=== PATIENT | male | born 1955 | race Caucasian/White ===

== ENCOUNTER 2016-05-02 19:09 | Emergency (ER) | payer BC ==
[~2016-05-02] VITALS: Ht 172.7 cm; Wt 75.0 kg
[2016-05-02 19:10] VITALS: BP 141/75; PULSE 85; RESP 20; TEMP 98.1; O2SAT 93
[2016-05-02] MEDS ORDERED: inhaler (19:26)
[2016-05-02] MEDS ORDERED: SODIUM CHLORIDE 0.9% FLUSH 10 ML FLUSH IVF PRN (19:30)
[2016-05-02] MEDS ORDERED: methylPREDNISolone SOD SUCC 125 MG/2 ML VIAL IVP ONE (19:30)
[2016-05-02 19:32] VITALS: O2SAT 95
[2016-05-02] MEDS: RESP: ALBUTEROL 2.5 MG/IPRATROPIUM 0.5 MG NEB (SCH) INH (19:37)
--- NOTE | 2016-05-02 19:47 | PD ---
HPI Chief Complaint: Respiratory Symptoms Time Seen by Provider: 19:43 Travel History International Travel<30 days: No Contact w/Intl Traveler<30days: No Traveled to known affect area: No History of Present Illness HPI 61-year-old male that presents to the ED for evaluation of shortness of breath, cough and fever. Per patient she's had this for the past 6 days. Per patient he does have a chronic history of COPD and continues to smoke. He denies any chest pain but he does state having a lot of cough causing some abdominal discomfort and then having a headache as well. Per patient she's been sick before but not as bad as this. Per patient she thought she could get over it but he has not. He been taking OTC meds with minimal relief. He denies any recent travel. Does having some fevers chills and sweats as well as body aches. Denies any sick contacts but he does state that he goes to the hospital a lot to see his . He has no allergies to medication. Denies any bowel movement or urinary issues. No history of heart disease. States that he's been trying to use his inhalers but he is not able because the shortness of breath and he feels like he cannot catch his breath. He states that he also has been losing his appetite he doesn't feel like he wants to eat. Denies any inability to eat but just not wanting to eat. PFSH Past Medical History COPD: Yes Respiratory: Yes (COPD) Influenza Vaccination: No Past Surgical History Other Surgery: Yes (hernia repair ) Social History Alcohol Use: No Tobacco Use: Yes (1ppd ) Substance Use: No Allergies-Medications (Allergen,Severity, Reaction): Coded Allergies: No Known Allergies (Unverified , 05/02/16) Reported Meds & Prescriptions Reported Meds & Active Scripts Active Nebulizer 1 Mis Mis 1 Ea .ROUTE DIRECTED Azithromycin 250 Mg Tab 250 Mg PO DIRECTED Take 2 tabs (500 mg) on day 1 then 1 tab daily x 4 days. Prednisone 20 Mg Tab 20 Mg PO BID Albuterol Neb (Albuterol Sulfate) 2.5 Mg/0.5 Ml Neb 2.5 Mg NEB Q6HR NEB Note: The Albuterol Sulfate Inhalation Solution is concentrated and must be diluted. Read complete instructions carefully before using. Proair Hfa 8.5 GM Inh (Albuterol Sulfate) 90 Mcg/Act Aer 2 Puff INH Q4-6H PRN 108 mcg/actuation Reported [inhaler] Review of Systems General / Constitutional: Positive: Fever, Chills, No: Weight Gain, Weight Loss, Other Eyes: No: Diploplia, Blurred Vision, Photophobia, Drainage, Redness, Foreign Body Sensation, Pain, Tearing, Blind Spots, Visual changes, Blindness, Other HENT: Positive: Headaches, Sore Throat, Rhinitis, Congestion, No: Vertigo, Lightheadedness, Rhinorrhea, Nosebleed, Neck Stiffness, Neck Pain, Masses, Gingival Bleeding, Dental Difficulties, Ear Discharge, Earache, Other Cardiovascular: No: Chest Pain or Discomfort, Palpitations, Irregular Rhythm, Tachycardia, Diaphoresis, Syncope, Dyspnea on exertion, Varicosities, Edema, Cyanosis, Varicosities, Phlebitis, Claudication, Other Respiratory: Positive: Cough, Shortness of Breath, Wheezing, No: Sneezing, Orthopnea, Hemoptysis, Stridor, Night Sweats, Pleuritic Pain, Other Gastrointestinal: Positive: Abdominal Pain (from coughing), No: Nausea, Vomiting, Diarrhea, Hematemesis, Hematochezia, Constipation, Changes in Bowel Habits, Indigestion, Dysphagia, Loss of Appetite, Other Genitourinary: No: Urgency, Frequency, Dysuria, Nocturia, Hematuria, Decreased Urinary Output, Oliguria, Hesitancy, Dribbling, Incontinence, Pelvic Pain, Flank Pain, Dyspareunia, Discharge, Dysmenorrhea, Menorrhagia, Metorrhagia, Vaginal Bleeding, Other Musculoskeletal: No: Myalgias, Arthralgias, Limited ROM, Weakness, Cramping, Edema, Pain, Atrophy, Other Skin: No Rash, No Itching, No Dryness, No Lumps, No Hives, No Change in Pigmentation, No Change in nails, No Alopecia, No Lesions, No Breast Lumps, No Breast Tenderness, No Breast Swelling, No Other Neurologic: No: Weakness, Dizziness, Syncope, Focal Abnormalities, Coordination Problem, Tremor, Ataxia, Headache, Change in Mentation, Slurred Speech, Paresthesia, Incontinence, Seizures, Sensory Disturbance, Other Psychiatric: No: Anxiety, Depression, Suicidal Ideations, Disorder of Thought, Mood Disorder, Substance Abuse, Homicidal Ideation, Other Endocrine: No: Heat Intolerance, Cold Intolerance, Polyuria, Polydipsia, Other Hematologic/Lymphatic: No: Easy Bruising, Lymph Node Enlargement, Other Physical Exam Narrative GENERAL: Well-nourished, well-developed patient in no apparent distress. SKIN: Warm and dry. HEAD: Atraumatic. Normocephalic. EYES: Pupils equal and round reactive to light and accommodation. No scleral icterus. No injection or drainage. ENT: No nasal bleeding or discharge. Mucous membranes pink and moist. TMs are clear with no sign of infection or perforation. No mastoid tenderness. Ear canals are intact bilaterally. No lymphadenopathy. Nostril mucosa is red and moist with clear mucus noted. No sinus tenderness to palpation noted. Tonsils are not enlarged or swollen. No ulvua Deviation. Tongue is midline. NECK: Trachea midline. No JVD. No meningeal signs noted CARDIOVASCULAR: Regular rate and rhythm. RESPIRATORY: No accessory muscle use. Rales and wheezing heard in all lung quesada.. Breath sounds equal bilaterally. GASTROINTESTINAL: Abdomen soft, non-tender, nondistended. Hepatic and splenic margins not palpable. MUSCULOSKELETAL: Extremities without clubbing, cyanosis, or edema. No obvious deformities. NEUROLOGICAL: Awake and alert. No obvious cranial nerve deficits. Motor grossly within normal limits. Five out of 5 muscle strength in the arms and legs. Normal speech. PSYCHIATRIC: Appropriate mood and affect; insight and judgment normal. Data Data Last Documented VS Vital Signs Date Time Temp Pulse Resp B/P Pulse Ox O2 Delivery O2 Flow Rate FiO2 05/02/16 19:32 95 Room Air 05/02/16 19:10 98.1 85 20 141/75 Orders Electrocardiogram (05/02/16 19:30) Basic Metabolic Panel (Bmp) (05/02/16 19:30) Complete Blood Count With Diff (05/02/16 19:30) Chest, Single Ap (05/02/16 19:30) Ecg Monitoring (05/02/16 19:30) Iv Access Insert/Monitor (05/02/16 19:30) Oximetry (05/02/16 19:30) Oxygen Administration (05/02/16 19:30) Methylprednisolone So Succ Inj (Solumedr (05/02/16 19:30) Albuterol-Ipratropium Neb (Duoneb Neb) (05/02/16 19:30) Sodium Chloride 0.9% Flush (Ns Flush) (05/02/16 19:30) Influenzae A/B Antigen (05/02/16 19:30) Albuterol Neb (Albuterol Neb) (05/02/16 20:45) Labs Laboratory Tests Test 05/02/16 19:37 White Blood Count 4.8 TH/MM3 Red Blood Count 5.13 MIL/MM3 Hemoglobin 15.2 GM/DL Hematocrit 46.0 % Mean Corpuscular Volume 89.7 FL Mean Corpuscular Hemoglobin 29.6 PG Mean Corpuscular Hemoglobin 33.0 % Concent Red Cell Distribution Width 13.4 % Platelet Count 132 TH/MM3 Mean Platelet Volume 10.3 FL Neutrophils (%) (Auto) 50.7 % Lymphocytes (%) (Auto) 33.1 % Monocytes (%) (Auto) 11.5 % Eosinophils (%) (Auto) 4.0 % Basophils (%) (Auto) 0.7 % Neutrophils # (Auto) 2.4 TH/MM3 Lymphocytes # (Auto) 1.6 TH/MM3 Monocytes # (Auto) 0.6 TH/MM3 Eosinophils # (Auto) 0.2 TH/MM3 Basophils # (Auto) 0.0 TH/MM3 CBC Comment DIFF FINAL Differential Comment Sodium Level 139 MEQ/L Potassium Level 4.6 MEQ/L Chloride Level 104 MEQ/L Carbon Dioxide Level 30.0 MEQ/L Anion Gap 5 MEQ/L Blood Urea Nitrogen 15 MG/DL Creatinine 1.34 MG/DL Estimat Glomerular Filtration 55 ML/MIN Rate Random Glucose 90 MG/DL Calcium Level 8.0 MG/DL MDM Medical Decision Making Medical Screen Exam Complete: Yes Emergency Medical Condition: Yes Medical Record Reviewed: Yes Interpretation(s) CBC & BMP Diagram 05/02/16 19:37 influenza negative CXR negative Differential Diagnosis Bronchitis versus sinusitis versus COPD exacerbation versus pneumonia versus influenza versus respiratory failure versus sepsis Narrative Course 61-year-old male that presents to the ED for evaluation of shortness of breath. Patient was properly examined and was found to have signs and symptoms consistent with appears to be possible COPD exacerbation. Labs and imaging ordered. Medications given. Labs and imaging showed no sign of acute disease. Flu negative. At this time this appears to be related to bronchitis with COPD exacerbation. Patient was rechecked and feels better. Patient was given results. Patient agrees with plan. This time I recommend outpatient treatment. Patient given prescription for albuterol inhaler, nebulizer as well as prescription for prednisone and azithromycin. He was told that he needs to follow up closely with PCP and discontinue smoking. Patient was told that if in 48 hours he does not improve or feels worse he needs to come back to the ED immediately. he agrees and understands. All questions were answered to the best of my ability. He is happy with care. See ED for worsening symptoms. Diagnosis Primary Impression: Bronchitis Additional Impression: COPD (chronic obstructive pulmonary disease) Qualified Code: J44.1 - Chronic obstructive pulmonary disease with acute exacerbation Patient Instructions: General Instructions Additional Instructions: Motrin and Tylenol for pain and fever. You can use [id number] antihistamine as well as well as Mucinex as needed for runny nose and congestion. Cough drops for cough as needed. Drink plenty of fluids. Follow-up with PCP. See ED for worsening symptoms. Med/Other Pt SpecificInfo: Prescription(s) given Scripts Nebulizer 1 Mis Mis #1 EA .ROUTE DIRECTED Ref 0 Prov:Turner Hylton MD 05/02/16 Azithromycin 250 Mg [id number] Mg PO DIRECTED #6 TAB Take 2 tabs (500 mg) on day 1 then 1 tab daily x 4 days. Prov:Turner Hylton MD 05/02/16 Prednisone 20 Mg Tab20 Mg PO BID #10 TAB Prov:Turner Hylton MD 05/02/16 Albuterol Neb 2.5 Mg/0.5 Ml Neb2.5 Mg NEB Q6HR NEB #30 BOX Note: The Albuterol Sulfate Inhalation Solution is concentrated and must be diluted. Read complete instructions carefully before using. Prov:Turner Hylton MD 05/02/16 Albuterol 8.5 GM Inh (Proair Hfa 8.5 GM Inh)90 Mcg/Act Aer2 Puff INH Q4-6H PRN ( SHORTNESS OF BREATH) #1 INHALER 108 mcg/actuation Prov:Turner Hylton MD 05/02/16 Disposition: 01 DISCHARGE HOME Condition: Stable Steven Oreilly May 02, 2016 19:47
[2016-05-02 20:06] LABS: AUTOMATED NEUTROPHIL # 2.4 TH/MM3 (1.8-7.7); BASOPHIL % 0.7 % (0.0-2.0); EOSINOPHIL # 0.2 TH/MM3 (0-0.4); HEMO FLAGS DIFF FINAL; LYMPH % 33.1 % (9.0-44.0); LYMPHOCYTE # 1.6 TH/MM3 (1.0-4.8); MEAN CELL VOLUME 89.7 FL (80.0-100.0); MEAN CORPUSCULAR HEMOGLOBIN 29.6 PG (27.0-34.0); MONO % 11.5 % (0.0-8.0); NEUT % 50.7 % (16.0-70.0); PLATELET COUNT 132 TH/MM3 (150-450); RED BLOOD COUNT 5.13 MIL/MM3 (4.50-5.90); RED CELL DISTRIBUTION WIDTH 13.4 % (11.6-17.2); WHITE BLOOD COUNT 4.8 TH/MM3 (4.0-11.0)
[2016-05-02 20:24] LABS: POTASSIUM 4.6 MEQ/L (3.5-5.1)
--- NOTE | 2016-05-02 20:24 | RADRPT ---
EXAM DATE/TIME: 05/02/2016 19:47 [facility] COMPARISON: No previous studies available for comparison. INDICATIONS : Wheezing and cough for the past few days. Fever also. MEDICAL HISTORY : Chronic obstructive pulmonary disease. SURGICAL HISTORY : None. ENCOUNTER: Initial ACUITY: 3 days PAIN SCORE: 0/10 LOCATION: Bilateral chest FINDINGS: A single view of the chest demonstrates the lungs to be symmetrically aerated without evidence of mas s, infiltrate or effusion. The cardiomediastinal contours are unremarkable. Osseous structures are intact. CONCLUSION: No acute disease. Zeus Rodarte MD on May 02, 2016 at 20:21 Board Certified Radiologist. This report was verified electronically.
[2016-05-02] MEDS ORDERED: ALBUAER3 INH (20:39)
[2016-05-02] MEDS ORDERED: AZIT250T3 PO (20:39)
[2016-05-02] MEDS ORDERED: PRED20 PO (20:39)
[2016-05-02] MEDS ORDERED: ALBU.5I NEB (20:39)
[2016-05-02] MEDS ORDERED: NEBULIZER1 MI1 (20:39)
[2016-05-02] MEDS: RESP: ALBUTEROL 2.5 MG/3 ML NEB (SCH) INH ×2 (21:00→21:01)
--- NOTE | 2016-05-03 14:52 | EKG ---
Date Performed: 05/02/2016 Time Performed: 19:34:46 PTAGE: 61 years EKG: Sinus rhythm NONSPECIFIC T-WAVE ABNORMALITY BORDERLINE ECG NO PREVIOUS TRACING DOCTOR: Anatoly Fernandez Interpretating Date/Time 05/03/2016 14:47:55
== END 2016-05-02 22:30 | disposition home or self-care (01) ==
LOC: NEPE 19:09
DX: J40 Bronchitis, not specified as acute or chronic (principal); J44.9 Chronic obstructive pulmonary disease, unspecified; R94.31 Abnormal electrocardiogram [ECG] [EKG]; F17.210 Nicotine dependence, cigarettes, uncomplicated
CPT/HCPCS: 71010; 80048; 85025; 87804; 93005; 94640; 94664; 96374; 99284; J2930; J7613